=== PATIENT | male | born 1940 | race Caucasian/White ===

== ENCOUNTER 2018-07-24 12:14 | Observation (INO) | payer OTHER ==
[2018-07-24] MEDS ORDERED: TETANUS & DIPHTHERIA TOX,ADULT 0.5 ML VIAL ONE (13:49)
[2018-07-24 14:01] LABS: Absolute Lymphocytes (CBC) 1.5 K/uL (0.7-4.9); Absolute Monocytes 0.7 K/uL (0.1-1.3); Absolute Neutrophil 6.1 K/uL (1.8-8.0); Basophils % 0.5 % (0-1.3); Eosinophils % 3.7 % (0-4.4); Hematocrit 36.7 % (39.6-49.0); Lymphocytes % 17.2 % (15.3-44.8); MCH 30.2 pg (27.0-35.0); MCV 89.5 fL (80-100); MPV 8.5 fL (7.6-11.3); Monocytes % 8.3 % (3.3-12.3)
[2018-07-24 14:22] LABS: BUN Blood Urea Nitrogen 12 mg/dL (7-18); Bicarbonate 27 mmol/L (21-32); Glucose Level 220 mg/dL (74-106); Potassium 3.9 mmol/L (3.5-5.1); Protime INR 1.2; Sodium Level 137 mmol/L (136-145)
[2018-07-24 14:23] LABS: ALT/SGPT 10 U/L (12-78); Albumin 3.2 g/dL (3.4-5.0); Alkaline Phosphatase 104 U/L (45-117); Bilirubin Direct 0.2 mg/dL (0-0.2); Bilirubin Total 0.5 mg/dL (0.2-1.0); Magnesium 2.2 mg/dL (1.8-2.4); NT PRO-BNP 855 pg/mL (<450); Protein, Total 7.9 g/dL (6.4-8.2); Troponin (Emerg Dept Use Only) < 0.02 ng/mL (0.0-0.045)
--- NOTE | 2018-07-24 14:25 | RAD REPORT ---
EXAM DESCRIPTION: RAD - Chest Single View - 07/24/2018 2:11 pm CLINICAL HISTORY: CHEST PAIN Chest pain. COMPARISON: CHEST SINGLE VIEW dated 01/28/2010; CHEST SINGLE VIEW dated 09/30/2008; CHEST PA AND LAT 2 V IEW dated 06/10/2000 FINDINGS: Portable technique limits examination quality. Emphysematous changes are present throughout the lungs. A large mass is present in the left apex like ly representing a Pancoast tumor. Heart size is mildly enlarged. 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
[2018-07-24 14:29] LABS: AST/SGOT < 3 U/L (15-37)
--- NOTE | 2018-07-24 15:10 | EKG ---
Test Date: 2018-07-24 Test Time: 12:35:17 Logging Engineer: JOEL MEASUREMENT RESULTS: Intervals: Rate: 47 SC: 132 QRSD: 130 QT: 492 QTc: 435 [place]: P: 35 SC: 132 QRS: 71 T: 49 INTERPRETIVE STATEMENTS: Marked sinus bradycardia with premature atrial complexes Right bundle branch block Abnormal ECG Compared to ECG 01/29/2010 00:59:04 Atrial premature complex(es) now present Right bundle-branch block now present Sinus arrhythmia no longer present Incomplete right bundle-branch block no longer present Electronically Signed On 07-24-18 15:09:51 WINE SPECIALIST by Porfirio Vance
--- NOTE | 2018-07-24 15:11 | RAD REPORT ---
EXAM DESCRIPTION: CT - Chest Angio - 07/24/2018 2:58 pm CLINICAL HISTORY: Chest pain. pancoast tumor COMPARISON: No comparisons TECHNIQUE: CT angiogram of the pulmonary arteries was performed with MIP. All CT scans are performed using dose optimization technique as appropriate and may include automated exposure control or mA/KV adjustment according to patient size. FINDINGS: No evidence of pulmonary thromboembolism. No acute aortic finding demonstrated. Large irregular masslike lesion is present in the left apex with internal necrosis. The lesion measur es 7.3 x 7.3 cm and abuts the superior aspect of the pleura as well as the superior medial margin of the mediastinum. The superior left ribs are not eroded significantly. Elsewhere, the lungs are emphys ematous. Several enlarged mediastinal lymph nodes are present including in the AP window measuring 16 mm and a nterior to the left hilum measuring 15 mm. Left hilar lymph node is also present measuring 13 mm. No significant pericardial or pleural fluid. Moderate thoracic degenerative changes. 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 Neoplasia is felt to be the most likely etiology of this finding, although a cavitary infectious process such as TB or cavitary pneumonia is also a possibility given the lack of bony destruction ad jacent to the lesion. Consideration may be given to bronchoscopy for further evaluation. Left-sided mediastinal and hilar lymphadenopathy is present.
--- NOTE | 2018-07-24 15:26 | ER ---
Nurse's Notes [facility] Name: Demarcus Avery Age: 77 yrs Sex: Male : 1940 Arrival Date: 07/24/2018 Time: 12:16 Bed 5 Private MD: Higinio Lugo Diagnosis: Malignant neoplasm of upper lobe, left bronchus or lung Presentation: 07/24 12:24 Presenting complaint: Patient states: pt fell last night into a glass coffee table. Pt dm5 has an injury to left elbow. Pt also states that he occasionally has chest pain and thinks he had a heart attack. Transition of care: patient was not received from another setting of care. Onset of symptoms was July 23, 2018. Risk Assessment: Do you want to hurt yourself or someone else? Patient reports no desire to harm self or others. Initial Sepsis Screen: Does the patient meet any 2 criteria? No. Patient's initial sepsis screen is negative. Does the patient have a suspected source of infection? No. Patient's initial sepsis screen is negative. Care prior to arrival: None. 12:24 Method Of Arrival: Wheelchair dm5 12:24 Acuity: VANDANA 3 dm5 Historical: - Allergies: 12:26 No Known Allergies; dm5 - PMHx: 17:53 Diabetes - IDDM; Hypertension; Hyperlipidemia; jl7 - Immunization history:: Adult Immunizations not up to date. - Social history:: Smoking status: unknown. - Ebola Screening: : No symptoms or risks identified at this time. Screenin:02 Abuse screen: Denies threats or abuse. Denies injuries from another. Nutritional jl7 screening: No deficits noted. Tuberculosis screening: No symptoms or risk factors identified. Fall Risk IV access (20 points). Total Perdomo Fall Scale indicates No Risk (0-24 pts). Assessment: 13:00 General: Appears in no apparent distress. uncomfortable, Behavior is calm, cooperative, jl7 appropriate for age. Pain: Complains of pain in left elbow and left knee Pain currently is 2 out of 10 on a pain scale. Pain began 1 day ago. Neuro: Level of Consciousness is awake, alert, obeys commands, Oriented to person, place, time, situation. Cardiovascular: Denies chest pain, shortness of breath, Heart tones present Patient's skin is warm and dry. Respiratory: Airway is patent Respiratory effort is even, unlabored, Respiratory pattern is regular, symmetrical, Breath sounds are clear bilaterally. GI: No signs and/or symptoms were reported involving the gastrointestinal system. : No signs and/or symptoms were reported regarding the genitourinary system. EENT: No signs and/or symptoms were reported regarding the EENT system. Derm: Skin is pink, warm \T\ dry. Musculoskeletal: No signs and/or symptoms reported regarding the musculoskeletal system. 14:00 Reassessment: Patient appears in no apparent distress at this time. No changes from jl7 previously documented assessment. Patient and/or family updated on plan of care and expected duration. Pain level reassessed. Patient is alert, oriented x 3, equal unlabored respirations, skin warm/dry/pink. 15:00 Reassessment: Patient appears in no apparent distress at this time. Patient and/or jl7 family updated on plan of care and expected duration. Pain level reassessed. Patient is alert, oriented x 3, equal unlabored respirations, skin warm/dry/pink. 16:00 Reassessment: No changes from previously documented assessment. Patient and/or family jl7 updated on plan of care and expected duration. Pain level reassessed. Patient is alert, oriented x 3, equal unlabored respirations, skin warm/dry/pink. 17:00 Reassessment: Patient appears in no apparent distress at this time. Patient and/or jl7 family updated on plan of care and expected duration. Pain level reassessed. Patient is alert, oriented x 3, equal unlabored respirations, skin warm/dry/pink. Vital Signs: 12:26 BP 159 / 73; Pulse 50; Resp 20; Pulse Ox 99% on R/A; Weight 95.25 kg; Height 6 ft. 2 dm5 in. (187.96 cm); Pain 0/10; 14:02 BP 149 / 70; Pulse 50; Resp 16 S; Pulse Ox 98% on R/A; jl7 16:00 BP 144 / 75; Pulse 47; Resp 16 S; Pulse Ox 98% on R/A; jl7 17:30 BP 145 / 74; Pulse 50; Resp 16 S; Pulse Ox 98% on R/A; jl7 12:26 Body Mass Index 26.96 (95.25 kg, 187.96 cm) [facility] ED Course: 12:16 Patient arrived in ED. ag5 12:17 Brittney, Higinio, MD is Private Physician. ag5 12:25 Triage completed. dm5 12:26 Arm band placed on right wrist. Patient placed in an exam room, on a stretcher. dm5 12:36 Domenico Bone PA is PHCP. jr8 12:36 Power Mcarthur MD is Attending Physician. jr8 12:50 EKG done, by automotive glass technician. reviewed by Domenico DUNLAP. at1 13:00 Patient has correct armband on for positive identification. Placed in gown. Bed in low jl7 position. Call light in reach. Side rails up X2. satellite project site monitor on. Pulse ox on. NIBP on. 13:29 Alejandro Valencia RN is Primary Nurse. jl7 13:45 Initial lab(s) drawn, by ks, sent to lab. Inserted saline lock: 20 gauge in right jl7 forearm, using aseptic technique. Blood collected. 14:05 X-ray completed. Portable x-ray completed in exam room. Patient tolerated procedure [facility] well. 14:23 XRAY Chest (1 view) In Process Unspecified. EDMS 14:[address] via stretcher. nj 14:58 CT Chest Angio In Process Unspecified. EDMS 15:23 Higinio Lugo MD is Hospitalizing Provider. jr8 17:48 No provider procedures requiring assistance completed. Patient admitted, IV remains in jl7 place. intact, No redness/swelling at site. 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 Exp: jl7 09/09/2020. Lot #: [id number]. } Route: IM; Site: right deltoid; 14:38 Follow up: Response: No adverse reaction jl7 Outcome: 15:25 Decision to Hospitalize by Provider. jr8 17:57 [facility], room [facility], with chart, Report jl7 called to JOCELYN Palomino 17:57 Condition: stable 17:57 Discharge instructions given to patient, Instructed on the need for admit, Demonstrated understanding of instructions. 18:41 Patient left the ED. jl7 Signatures: Dispatcher [employer] EDIL Gina Murray, RN RN [facility] Gay Sylvester [facility] Domenico Bone PA PA jr8 Adriana Swanson, wallpaper inspector and shipper EKG Tat1 Ashish Braun Jahala, JOCELYN RN jl7 Rahat Duncan 5
--- NOTE | 2018-07-24 15:26 | EDPHYS ---
Physician Documentation [facility] Name: Demarcus Avery Age: 77 yrs Sex: Male : 1940 Arrival Date: 07/24/2018 Time: 12:16 Bed 5 Private MD: Higinio Lugo ED Physician Power Mcarthur HPI: 07/24 13:07 This 77 yrs old Male presents to ER via Wheelchair with complaints of Fall jr8 Injury. 13:07 Onset: The symptoms/episode began/occurred acutely, last night. Severity of symptoms: jr8 At their worst the symptoms were mild, in the emergency department the symptoms are unchanged. The patient has not experienced similar symptoms in the past. The patient has not recently seen a physician. Patient was walking and tripped causing him to fall into glass table. Pain to left elbow and knee from lacerations. Denies hitting head or neck. Denies any other complaints . Historical: - Allergies: 12:26 No Known Allergies; dm5 - PMHx: 17:53 Diabetes - IDDM; Hypertension; Hyperlipidemia; jl7 - Immunization history:: Adult Immunizations not up to date. - Social history:: Smoking status: unknown. - Ebola Screening: : No symptoms or risks identified at this time. ROS: 13:07 Eyes: Negative for injury, pain, redness, and discharge, ENT: Negative for injury, jr8 pain, and discharge, Neck: Negative for injury, pain, and swelling, Cardiovascular: Negative for chest pain, palpitations, and edema, Respiratory: Negative for shortness of breath, cough, wheezing, and pleuritic chest pain, Abdomen/GI: Negative for abdominal pain, nausea, vomiting, diarrhea, and constipation, Back: Negative for injury and pain, Neuro: Negative for headache, weakness, numbness, tingling, and seizure. 13:07 MS/extremity: Positive for laceration, puncture, tenderness, of the left arm and left leg. 13:07 Skin: Positive for laceration(s), puncture. Exam: 13:07 Head/Face: Normocephalic, atraumatic. Eyes: Pupils equal round and reactive to light, jr8 extra-ocular motions intact. Lids and lashes normal. Conjunctiva and sclera are non-icteric and not injected. Cornea within normal limits. Periorbital areas with no swelling, redness, or edema. ENT: Nares patent. No nasal discharge, no septal abnormalities noted. Tympanic membranes are normal and external auditory canals are clear. Oropharynx with no redness, swelling, or masses, exudates, or evidence of obstruction, uvula midline. Mucous membranes moist. Neck: Trachea midline, no thyromegaly or masses palpated, and no cervical lymphadenopathy. Supple, full range of motion without nuchal rigidity, or vertebral point tenderness. No Meningismus. Chest/axilla: Normal chest wall appearance and motion. Nontender with no deformity. No lesions are appreciated. Cardiovascular: Regular rate and rhythm with a normal S1 and S2. No gallops, murmurs, or rubs. Normal PMI, no JVD. No pulse deficits. Respiratory: Lungs have equal breath sounds bilaterally, clear to auscultation and percussion. No rales, rhonchi or wheezes noted. No increased work of breathing, no retractions or nasal flaring. Abdomen/GI: Soft, non-tender, with normal bowel sounds. No distension or tympany. No guarding or rebound. No evidence of tenderness throughout. Back: No spinal tenderness. No costovertebral tenderness. Full range of motion. MS/ Extremity: Pulses equal, no cyanosis. Neurovascular intact. Full, normal range of motion. Neuro: Awake and alert, GCS 15, oriented to person, place, time, and situation. Cranial nerves II-XII grossly intact. Motor strength 5/5 in all extremities. Sensory grossly intact. Cerebellar exam normal. Normal gait. 13:07 Skin: small avulsion tear noted to left elbow. Small puncture injury noted to patella of left knee . Vital Signs: 12:26 BP 159 / 73; Pulse 50; Resp 20; Pulse Ox 99% on R/A; Weight 95.25 kg; Height 6 ft. 2 dm5 in. (187.96 cm); Pain 0/10; 14:02 BP 149 / 70; Pulse 50; Resp 16 S; Pulse Ox 98% on R/A; jl7 16:00 BP 144 / 75; Pulse 47; Resp 16 S; Pulse Ox 98% on R/A; jl7 17:30 BP 145 / 74; Pulse 50; Resp 16 S; Pulse Ox 98% on R/A; jl7 12:26 Body Mass Index 26.96 (95.25 kg, 187.96 cm) dm5 MDM: 12:36 Patient medically screened. [facility] 15:22 Data reviewed: vital signs, nurses notes, lab test result(s), EKG, radiologic studies, jr8 CT scan, plain films. Data interpreted: Pulse oximetry: on room air is 98 %. Interpretation: normal. Counseling: I had a detailed discussion with the patient and/or guardian regarding: the historical points, exam findings, and any diagnostic results supporting the discharge/admit diagnosis, lab results, radiology results, the need for further work-up and treatment in the hospital. ED course: Consulted Dr. Marquez who accepted patient for diagnostic bronchoscopy. Will admit to Dr. Lugo . 15:56 ED course: Have called and left message to Dr. Lugo about admission. Have now called [facility] 3 different times with no response as of yet. 16:45 ED course: Called Dr. Lugo's office which is closed. Left another message on his [facility] cell phone as well . 17:08 ED course: Dr. Lugo called back and accepted patient at 17:09. [facility] 07/24 13:17 Order name: Basic Metabolic Panel; Complete Time: 14:34 8 07/24 13:17 Order name: CBC with Diff; Complete Time: 14:34 8 07/24 13:17 Order name: LFT's; Complete Time: 14:34 8 07/24 13:17 Order name: Magnesium; Complete Time: 14:34 8 07/24 13:17 Order name: NT PRO-BNP; Complete Time: 14:34 8 07/24 13:17 Order name: PT-INR; Complete Time: 14:27 [facility] 07/24 13:07 Order name: Wound Care; Complete Time: 13:52 jr8 07/24 13:07 Order name: Wound dressing; Complete Time: 14:18 8 07/24 13:17 Order name: Troponin (emerg Dept Use Only); Complete Time: 14:34 8 07/24 13:17 Order name: XRAY Chest (1 view); Complete Time: 14:28 8 07/24 13:17 Order name: EKG; Complete Time: 13:19 8 07/24 14:36 Order name: CT Chest Angio; Complete Time: 15:12 [facility] 07/24 16:26 Order name: CONS Physician Consult EDOH 07/24 13:17 Order name: Cardiac monitoring; Complete Time: 13:54 jr 07/24 13:17 Order name: IV Saline Lock; Complete Time: 13:54 jr8 07/24 13:17 Order name: Labs collected and sent; Complete Time: 13:52 jr 07/24 13:17 Order name: O2 Per Protocol; Complete Time: 13:52 jr8 07/24 13:17 Order name: O2 Sat Monitoring; Complete Time: 13:53 jr8 Administered Medications: 13:51 Drug: Tetanus-Diphtheria Toxoid Adult 0.5 ml {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 Exp: jl7 09/09/2020. Lot #: [id number]. } Route: IM; Site: right deltoid; 14:38 Follow up: Response: No adverse reaction jl7 Disposition: 07/25 06:22 Co-signature as Attending Physician, Power Mcarthur MD I agree with the assessment and dayna plan of care. Disposition: 07/24/18 15:25 Hospitalization ordered by Higinio Lugo for Inpatient Admission. Preliminary diagnosis is Malignant neoplasm of upper lobe, left bronchus or lung. - Bed requested for Telemetry/MedSurg (Inpatient). - Status is Inpatient Admission. jl7 - Condition is Stable. - Problem is new. - Symptoms are unchanged. UTI on Admission? No Signatures: Dispatcher [employer] [facility] Ladi Duque Deana, RN RN dm5 Power Mcarthur MD MD cha Roszak, Josh, PA PA jr8 Alejandro Valencia RN RN jl7 Corrections: (The following items were deleted from the chart) 07/24 16:49 15:25 Hospitalization Ordered by Hiignio Lugo MD for Inpatient Admission. Preliminary bd diagnosis is Malignant neoplasm of upper lobe, left bronchus or lung. Bed requested for Telemetry/MedSurg (Inpatient). Status is Inpatient Admission. Condition is Stable. Problem is new. Symptoms are unchanged. UTI on Admission? No. jr8 18:41 16:49 07/24/2018 15:25 Hospitalization Ordered by Higinio Lugo MD for Inpatient jl7 Admission. Preliminary diagnosis is Malignant neoplasm of upper lobe, left bronchus or lung. Bed requested for Telemetry/MedSurg (Inpatient). Status is Inpatient Admission. Condition is Stable. Problem is new. Symptoms are unchanged. UTI on Admission? No. bd
[2018-07-24] MEDS ORDERED: ONDANSETRON 4 MG/2 ML VIAL IV PRN (18:25)
[2018-07-24] MEDS ORDERED: MORPHINE 2 MG/ML SYR IV PRN (18:25)
[2018-07-24] MEDS ORDERED: ACETAMINOPHEN 500 MG TAB PO PRN (18:25)
[2018-07-24 19:31] VITALS: BMI 24.9
[2018-07-25] MEDS ORDERED: INFLUENZA VACCINE (for 3y+) 0.5 ML DOSE IMVAC ONE (08:00)
[2018-07-25] MEDS ORDERED: HYDROCODONE/APAP 5/325 MG TAB PO PRN (08:18)
[2018-07-25 08:21] LABS: Absolute Monocytes 0.6 K/uL (0.1-1.3); Absolute Neutrophil 6.5 K/uL (1.8-8.0); Basophils % 0.9 % (0-1.3); Eosinophils % 2.2 % (0-4.4); Hematocrit 35.5 % (39.6-49.0); Lymphocytes % 12.2 % (15.3-44.8); MCH 30.4 pg (27.0-35.0); MCV 89.6 fL (80-100); MPV 8.6 fL (7.6-11.3); Monocytes % 7.3 % (3.3-12.3); RBC Red Blood Cell Count 3.97 M/uL (4.33-5.43)
--- NOTE | 2018-07-25 08:21 | P.CNS ---
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 denies any other symptoms Allergies No Known Allergies Allergy (Verified 12/29/17 16:08) Home Medications: Atorvastatin Calcium [Lipitor] 10 mg PO BEDTIME 07/25/18 Gabapentin 600 mg PO QID 07/25/18 Hydrocodone Bit/Acetaminophen [Hydrocodon-Acetaminoph 7.5-325] 1 each PO QID 12/07 Metformin HCl [Glucophage] 500 mg PO BIDWM 07/25/18 Zolpidem Tartrate [Ambien] 10 mg PO BEDTIME PRN PRN 07/25/18 - Past Medical/Surgical History Diabetic: Yes -: DM -: HTN -: hyperlipidemia -: Left elbow bursa cyst removed - Social History Smoking Status: Current every day smoker, Unknown if ever smoked Alcohol use: No CD- Drugs: Yes Caffeine use: Yes Place of Residence: Home Review of Systems 10-point ROS is otherwise unremarkable General: Weakness, Other (Weight loss) Cardiovascular: Chest Pain Physical Examination Temp Pulse Resp BP Pulse Ox 98.1 F 62 18 162/72 H 96 07/25/18 04:00 07/25/18 04:00 07/25/18 04:00 07/25/18 04:00 07/25/18 04:00 General: Alert, Oriented x3 Neck: Supple Respiratory: Clear to auscultation bilaterally Cardiovascular: No edema, Normal S1 S2 Gastrointestinal: Normal bowel sounds, Soft and benign Musculoskeletal: No clubbing, No swelling Laboratory Data (last 24 hrs) 07/24/18 13:47: PT 14.2 H, INR 1.20 07/24/18 13:47: WBC 8.7, Hgb 12.4 L, Hct 36.7 L, Plt Count 229 07/24/18 13:47: Sodium 137, Potassium 3.9, BUN 12, Creatinine 1.00, Glucose 220 H, Magnesium 2.2, Total Bilirubin 0.5, AST < 3 L, ALT 10 L, Alkaline Phosphatase 104 - Problems (1) Lung cancer Current Visit: Yes Status: Acute Plan: Patient is 77 years of age admitted with left-sided chest pain, large left upper lobe lung mass most likely Pancoast tumor the schedule for bronchoscopy tomorrow discussed with the patient risk and benefit include bleeding infection and lung collapse any agrees MRI of the brain with contrast labs reviewed mildly anemic possible discharge tomorrow off to the bronchoscopy the lead stronger pain meds Qualifiers: Laterality: left
[2018-07-25 08:56] LABS: Potassium 4.3 mmol/L (3.5-5.1)
[2018-07-25] MEDS ORDERED: ZOLPIDEM TARTRATE 10 MG TABLET PO PRN (10:05)
--- NOTE | 2018-07-25 11:41 | RAD REPORT ---
EXAM DESCRIPTION: MRI - Brain W/Wo Cont - 07/25/2018 11:15 am CLINICAL HISTORY: Lung cancer. Patient fell COMPARISON: None TECHNIQUE: Axial, sagittal, and coronal magnetic images of the brain were obtained. Nineteen cc Mult iHance administered intravenously FINDINGS: Mild signal within periventricular, deep and subcortical white matter likely represent isc hemic changes secondary to small vessel disease. The ventricles are normal in caliber. Diffusion-weighted sequences do not demonstrate evidence of an acute infarction. No abnormal enhancement within the brain is seen. An extra-axial fluid collection is not noted. Fluid within the sinuses/mastoids is not seen. A mucus retention cyst left maxillary sinus IMPRESSION: No evidence metastatic disease
[2018-07-25] MEDS: GABAPENTIN 300 MG CAP PO SCH ×3 (11:42→22:30)
[2018-07-25] MEDS: HYDROCODONE/APAP 7.5/325 MG TAB PO SCH ×3 (11:42→22:30)
[2018-07-25] MEDS ORDERED: METFORMIN HCL 500 MG TAB PO SCH (17:00)
[2018-07-25] MEDS ORDERED: GLUCAGON 1 MG/VIAL IM PRN (19:43)
[2018-07-25] MEDS ORDERED: D50W 25 GM/50 ML SYRINGE IV PRN (19:43)
[2018-07-25] MEDS ORDERED: NA CHLORIDE 0.9% 1,000 ML IV SCH (20:00)
[2018-07-25] MEDS ORDERED: ATORVASTATIN 10 MG TAB PO SCH (21:00)
[2018-07-25] MEDS ORDERED: CEFTRIAXONE 1 GM/50 ML BAG IV SCH (21:00)
[2018-07-25] MEDS: INSULIN -REGULAR HUMAN 50 UNIT/0.5 ML ML SQ SCH (22:30)
[2018-07-25] MEDS ORDERED: CEFTRIAXONE/SWI 1gm 1 GM/10 ML SYR ONE (22:39)
--- NOTE | 2018-07-26 01:05 | PN ---
Date of Progress Note: 07/25/2018 The patient has had no further complaints today, although he has not eaten much and had given some IV fluids tonight in preparation for his bronchoscopy in the morning. Obviously, depending on those re sults, we will determine his status. HR/MODL Voice ID: [id number] Report ID: [id number]
--- NOTE | 2018-07-26 01:11 | HP ---
Date of Admission: 07/24/2018 Chief Complaint: Chest pain. History Of Present Illness: The patient states this can be determined as he is quite hard of hearing that he had some left posterior and anterior chest pain, not associated with dyspnea, felt it was ba d enough to come to the emergency room. It was obviously significant as the patient usually does not present to the office or hospital unless he is quite ill and when he presented here and chest x-ray revealed Pancoast tumor obvious cause of this pain and a cardiac workup was done to exclude this. Th e patient does state that he fell and sustained some bruises of his elbow and arms and this also prec ipitated him coming to the ER. Past History: The patient had a history of NIDDM, under good control on diet and metformin. Social History: The patient has a long history of smoking. Family History: Noncontributory. Physical Examination: General: The patient is a thin elderly male in no acute distress with stable vital signs. Head And Neck: Normocephalic. Pupils equal to light and accommodation. Fundi negative. Trachea mid line. Thyroid not palpable. ENT: Negative. Chest: Adequate air entry and movement bilaterally. No adventitious sounds. Cardiovascular: PMI in midclavicular line. Heart sounds normal. Peripheral pulses are present and equal bilaterally. Abdomen: No organomegaly. Bowel sounds present. Extremities: Slightly dehydrated. Good tone and movement bilaterally. Reflexes physiologic. Rectal: Deferred. Impression: Pancoast tumor of the lung. Plan: The patient will be admitted, Pulmonology will be consulted. Evaluation of the cardiac etiolog y of his chest pain is still ongoing and due to the fall, the MRIs and CT angios were also performed. HR/MODL Voice ID: [id number]
[2018-07-26 05:26] LABS: Urine Appearance CLEAR; Urine Bilirubin NEGATIVE (NEG); Urine Blood NEGATIVE (NEG); Urine Color DK YELLOW; Urine Glucose TRACE (NEG); Urine Protein TRACE (NEG); Urine Specific Gravity >=1.030 (1.005-1.030); Urine Urobilinogen 0.2 mg/dL (0.2-1.0); Urine pH 5.5 (5.0-7.0)
[2018-07-26 05:35] LABS: Urine Microscopic Reflex ORDER UMIC
[2018-07-26 05:46] LABS: Urine Bacteria 20-50 /HPF (NONE SEEN); Urine Culture Reflex Order REFLEXED; Urine Mucus SLIGHT /HPF (NONE SEEN); Urine RBC <5 /HPF (NONE SEEN)
[2018-07-26] MEDS ORDERED: Phenylephrine HCl 10 MG/ML 1 ML VIAL ONE (07:24)
[2018-07-26] MEDS ORDERED: GLYCOPYRROLATE 0.2 MG/ML SYR ONE (07:25)
[2018-07-26] MEDS ORDERED: LIDOCAINE 1% MPF 30 ML VIAL ONE (07:25)
[2018-07-26] MEDS ORDERED: LIDOCAINE VISCOUS 2% SOLN 15 ML UDC ONE (07:25)
[2018-07-26] MEDS ORDERED: LIDOCAINE 4% TOP SOLUTION ONE (07:25)
[2018-07-26] MEDS ORDERED: NA CHLORIDE 0.9% 1,000 ML ONE (07:26)
[2018-07-26] MEDS: INSULIN -REGULAR HUMAN 50 UNIT/0.5 ML ML SQ SCH ×3 (07:30→15:53)
[2018-07-26] MEDS ORDERED: PROPOFOL 200 MG/20 ML VIAL IV ONE ×2 (08:09)
[2018-07-26] MEDS ORDERED: LIDOCAINE 1% MPF 5 ML VIAL ONE (08:09)
--- NOTE | 2018-07-26 08:35 | P.OP ---
Date of Service: 07/26/18 (Bronchoscopy with transbronchial biopsies of the left upper lobe wire brushings and BAL) Findings and Operative Technique Patient is 77 years of age evaluated by me for a left upper lobe lung mass hence the reason for bronchoscopy After obtaining informed consent from patient he was premedicated by anesthesia Finding normal vocal cords normal trachea normal hannah normal endobronchial anatomy no endobronchial lesions visible Multiple biopsies were obtained from the left upper lobe S stated above patient tolerated the procedure well specimens sent off for routine cytology pathology and cultures
[2018-07-26] MEDS: GABAPENTIN 300 MG CAP PO SCH ×3 (09:00→16:57)
[2018-07-26] MEDS: HYDROCODONE/APAP 7.5/325 MG TAB PO SCH ×3 (09:00→16:57)
[2018-07-26] MEDS ORDERED: CEFTRIAXONE/SWI 1gm 1 GM/10 ML SYR IV SCH (09:00)
--- NOTE | 2018-07-26 10:29 | RAD REPORT ---
EXAM DESCRIPTION: Mayit Single View07/26/2018 10:13 am CLINICAL HISTORY: Chest mass FINDINGS: Left pneumothorax is not seen status post bronchoscopy
--- NOTE | 2018-07-26 10:37 | RAD REPORT ---
EXAM DESCRIPTION: RAD - FLUORO-GUIDE FOR BRONCH UPT1HR - 07/26/2018 8:48 am FINDINGS: Fluoroscopic assisted bronchoscopy was performed. Fluoro time was 6 minutes 44 seconds. Four portable C-arm views were submitted. No suspicious or unexpected finding.
[2018-07-26 16:50] VITALS: BP 171/83; TEMP 99.7
[2018-07-26 17:35] VITALS: O2SAT 95
--- NOTE | 2018-07-26 20:48 | PN ---
Date of Progress Note: 07/26/2018 The patient is now post bronchoscopy. Feels fine. Actually, areas of erythema around the abrasion a nd contusion of the elbow has also improved on the Rocephin IV. We will discharge him on Keflex. He will follow up with Dr. Marquez and myself in 1 week. Arrangements will be made for him to see Gus n Management as well as the patient has had a long history of analgesic requirements for peripheral n europathy prior to being diagnosed with the Pancoast tumor. Discussion was held with the patient's servando way in regard to follow up care obviously dependent on the biopsy report. HR/MODL Voice ID: [id number] Report ID: [id number]
== END 2018-07-26 18:28 | disposition home or self-care (01) ==
LOC: ER 12:14 → ERHOLD 16:24 → INTOOBSV 16:24 → 4TH 17:59
PROVIDERS: ADMIT Family Medicine; ATTEND Family Medicine
PROC: 0BDG8ZX Extraction of Left Upper Lung Lobe, Via Natural or Artificial Opening Endoscopic, Diagnostic (ICD-10-PCS; 2018-07-26)
PROC: 0B9G8ZX Drainage of Left Upper Lung Lobe, Via Natural or Artificial Opening Endoscopic, Diagnostic (ICD-10-PCS; principal; 2018-07-26 08:00)
DX: C34.12 Malignant neoplasm of upper lobe, left bronchus or lung (principal); Z23 Encounter for immunization; E11.9 Type 2 diabetes mellitus without complications
CPT/HCPCS: 31623; 31624; 36415 ×2; 70553; 71045 ×2; 71275; 76000; 80048 ×3; 80076; 82962 ×5; 83735; 83880; 84484; 85025 ×2; 85610; 87015; 87070; 87086; 87088; 87102; 87116; 87206; 88108; 88305 ×2; 90714; 93005; 99285; A9577; G0008; G0378 ×2; J0696 ×2; J2270; J2370; J2405; J2704 ×2; J7030 ×2; Q2035; Q9967; 81003; 81015